=== PATIENT | female | born 1970 | race Caucasian/White ===

== ENCOUNTER 2016-09-30 11:31 | Emergency (ER) | payer BC, OTHER ==
[2016-09-30] MEDS ORDERED: KETOROLAC TROMETHAMINE 30 MG/ML VIAL IV ONE (12:00)
[2016-09-30] MEDS ORDERED: NORMAL SALINE 1,000 ML IV ONE (12:00)
[2016-09-30] MEDS ORDERED: ACETAMINOPHEN 500 MG TABLET PO ONE (12:01)
--- NOTE | 2016-09-30 12:16 | ERNOTE ---
Headache ER HPI - Narrative Date of Service: 09/30/16 - General Presenting Symptoms: facial pain, fever Time Seen by Provider: 09/30/16 11:47 Source: patient Exam Limitations: no limitations - Immun/Allergies/Home Medications Immunizations: IMMUNIZATION HX Immunizations Up to Date Yes History of Influenza Vaccine Yes Hx Pneumococcal Vaccination No Allergies/Adverse Reactions: Allergies No Known Allergies Allergy (Verified 09/30/16 11:49) Home Medications: HOME MEDICATIONS Multivitamins [Multivitamin Andressa] 1 cap PO DAILY 03/05/15 [Last Taken Unknown] Azithromycin [Zithromax] 500 mg PO NOW #6 tab 09/30/16 [Last Taken Unknown] Cefdinir [Omnicef] 300 mg PO Q12H #10 cap 09/30/16 [Last Taken Unknown] Fluconazole [Diflucan] 150 mg PO DAILY #2 tablet 09/30/16 [Last Taken Unknown] - History of Present Illness Narrative: 45-year-old female presenting to the emergency room for complaints of headache and fever for the last 2 weeks. States she's also had body aches. Patient has been seen in the outpatient clinic and has been tested for strep and mono and influenza which were all negative per Gertrudis in the walk-in clinic. Date (Duration): 09/30/16 Timing of Headache: intermittent Context Headache: Present: new onset Quality: Present: pressure Severity Maximum: Present: mild Severity-Currently: Present: mild Headache frequency: Present: no recent headache Modifying Factors - (Improves): Reports: rest Associated Symptoms: Reports: fever/chills, sweating. Denies: nausea, vomiting , nasal congestion, facial pain, numbness/tingling, vision changes, confusion, light-headedness, dizziness, loss of consciousness, seizures, neck pain/ stiffness, speech problems Prior Treament: Reports: recently seen - in out patient clinic Review of Systems - Review of Systems Constitutional: Present: See HPI, recent illness, fever EYE: Present: no symptoms reported ENT: Present: See HPI Respiratory: Present: no symptoms reported Cardiology: Present: no symptoms reported Gastrointestinal/Abdominal: Present: no symptoms reported Genitourinary: Present: no symptoms reported Musculoskeletal: Present: no symptoms reported. Absent: neck pain Skin: Present: no symptoms reported. Absent: rash Neurological: Present: no symptoms reported Endocrine: Present: no symptoms reported Hematologic/Lymphatic: Present: no symptoms reported Psych: Present: no symptoms reported - Patient's Past Medical History Patient History - Medical: Obesity, Other Patient History - Cardiac/Respiratory: Other Patient History - Cancer: No Hx of Cancer Patient History - Surgical Procedures: D & C, Hysterectomy, T & A, Other Patient History - Other: None - Social History Living Situations: alone Abuse History: No History of abuse Psych History: No pertinent hx Smoking Status: Never smoker Have you smoked in the past 12 months: No Alcohol Use: none Drug Use: none - Immunizations Immunizations Up to Date: Yes Hx Pneumococcal Vaccination: No History of Influenza Vaccine: Yes Physical Exam - Physical Exam General Appearance: Present: wd/wn, alert, no apparent distress Eye Exam: Normal inspection: bilateral Ears, Nose, Throat: Present: sinus pain/drainage, normal pharynx. Absent: nasal congestion, pharyngeal swelling Neck: Present: normal inspection Respiratory: Present: no respiratory distress Cardiovascular/Chest: Present: regular rate, rhythm Gastrointestinal/Abdominal: Present: normal bowel sounds Back Exam: Present: normal inspection Extremity Exam: Present: normal inspection Neurological Exam: Present: alert, oriented, normal mood/affect Skin Exam: Present: normal color Lymphatic Exam: Present: no adenopathy ED Progress - Results and Orders Patient's Lab Results:: I have reviewed the patient's lab results. Results and Orders: lab results reviewed - Vital Signs Patient's Vital Signs:: I have reviewed the patient's vital signs. Vital Signs: Vital Signs 09/30/16 11:46 Temperature 39 C H Pulse Rate 125 H Respiratory 14 Rate Blood Pressure 156/87 O2 Sat by Pulse 96 Oximetry - EKG EKG read: Reviewed by me EKG Comments: interperated by Dr Galeaon - X-Ray X-Ray #1 X-Ray: sinus Interpretation: Reviewed by me X-ray Comments: Impression: Paranasal sinuses appear patent. Suggestion of slight expansion of the sella turcica. If indicated, MRI of the sella turcica could be considered to further evaluate. Electronically signed by Phil Sosa D.O.. X-Ray #2 X-Ray: chest Interpretation: Reviewed by me X-ray Comments: Findings: The lungs are symmetrically inflated. There is a subtle left parahilar opacity. No pneumothorax or pleural effusion. The mediastinum, cardiac silhouette and pulmonary vascularity are within normal limits. The osseous structures are remarkable for degenerative changes. No acute osseous findings. IMPRESSION: Subtle left parahilar opacity concerning for pneumonia. Recommend follow-up to resolution as other processes are not excluded. Electronically signed by Phil Sosa D.O.. - CT/Ultrasound CT/Ultrasound Narrative: chest Impression: 1. No evidence for pulmonary embolus. 2. Left lower lung consolidation, compatible with pneumonia. Recommend follow-up to resolution as other etiologies are not excluded. 3. Left hilar lymphadenopathy and mediastinal lymphadenopathy is likely reactive. Follow-up CT in 3 months could be considered to assess for resolution. 4. Cholelithiasis. 5. Right thyroid nodule; recommend routine outpatient thyroid ultrasound to further evaluate. 6. Additional findings and comments are as above. Electronically signed by Phil Sosa D.O.. - Progress/Reassessment Chief Complaint: Headache Progress:: Improved Departure Clinical Impression: Pneumonia Qualifiers: Pneumonia type: due to unspecified organism Laterality: left Lung location: lower lobe of lung Qualified Code(s): J18.1 - Lobar pneumonia, unspecified organism - Departure Disposition: Home Follow Up Needed Condition: Good Instructions: Community-Acquired Pneumonia, Adult, [id number] Additional Instructions: Continue all previous home medications. Continue all [id number] pain and fever medications. Take antibiotics as directed. Follow up with her primary care physician on Sunday regarding CAT scan results. Return to the emergency room if symptoms persists or there not able to be controlled with medication. return to the emergency room if you have any other signs and symptoms of infection. Referrals: Frank Hernandez DO [Primary Care Provider] - Prescriptions: Azithromycin [Zithromax] 500 mg PO NOW #6 tab Cefdinir [Omnicef] 300 mg PO Q12H #10 cap Fluconazole [Diflucan] 150 mg PO DAILY #2 tablet
[2016-09-30] MEDS ORDERED: KETOROLAC TROMETHAMINE 30 MG/ML VIAL ONE (12:37)
--- OUTSIDE RECORDS SUMMARY | 2016-09-30 12:43 | XMS REPORT | Continuity of Care Document ---
:1970 Author Organization [facility] ([facility]) Address [address] [place] [address] Phone [phone] Care Team Providers Name Role Phone Frank Hernandez Primary Care Provider [phone] Source Comments This disclosure is being made pursuant to the Care Everywhere program, applicable federal and state laws, and may not contain all informaitonavailable regarding this patient.[facility] ([facility]) Active Allergies and Adverse Reactions No Known Allergies Current Medications Prescription Sig. Disp. Refills Start Date End Date Status oxyCODONE-acetamino Take 1 tablet by 60 tablet 0 06/21/2015 Active phen 5-325 mg per mouth every 4 hours tablet as needed for pain. Do Not exceed 4000 mg of acetaminophen per 24 hours. docusate 100 mg Take 1 capsule (100 60 capsule 0 06/21/2015 Active capsule mg total) by mouth 2 times daily as needed ibuprofen 600 mg Take 1 tablet (600 45 tablet 0 06/21/2015 Active tablet mg total) by mouth every 6 hours as needed multivitamin tablet Take 1 tablet by Active mouth daily. 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 SPECIALIST Pulse 75 08/09/2015 10:45 AM CL[employer]ICAL TRANSFORMATION SPECIALIST Temperature 36.9 C (98.4 F) 08/09/2015 10:45 AM CLINICAL TRANSFORMATION SPECIALIST Respiratory Rate 16 06/22/2015 8:30 AM CLINICAL TRANSFORMATION SPECIALIST Height 1.727 m (5' 8") 06/21/2015 2:00 PM CL[employer]ICAL TRANSFORMATION SPECIALIST Weight 134.4 kg (296 lb 4.8 oz) 08/09/2015 10:45 AM CLINICAL TRANSFORMATION SPECIALIST Body Mass Index 45.06 08/09/2015 10:45 AM CLINICAL TRANSFORMATION SPECIALIST Oxygen Saturation 94% 06/22/2015 8:00 AM CLINICAL TRANSFORMATION SPECIALIST Plan of Care Health Maintenance Due Date Last Done Comments Hepatitis B Vaccine (1 of 3 - Primary Series) 1970 Tdap Vaccine 1981 Lipid Disorder Screening 1988 MMR Vaccine 1988 Td Vaccine 1988 Cervical Cancer Screening 2000 Mammogram 2010 Influenza Vaccine: Seasonal (#1) 01/24/2016 Results from Last 3 Months Not on file
[2016-09-30 12:45] LABS: Hemoglobin 13.9 gm/dL (12.5-16.0); Mean Cell Volume 87.8 fl (78-100); Mean Corpuscular Hemoglobin 29.8 pg (27-31); Mean Corpuscular Hgb Conc 33.9 g/dl (32-36); Mean Platelet Volume 9.9 fl (6.0-9.5); Neutrophil # 6.8 K/mm3 (1.3-6.0); Platelet Count 211 K/mm3 (150-450); Red Blood Count 4.67 M/mm3 (4.2-5.4); Red Cell Distribution Width 12.4 % (11.5-14.0); White Blood Count 8.1 K/mm3 (4.0-10.5)
[2016-09-30 12:56] LABS: Albumin * 4.1 gm/dl (3.4-5.0); BUN/Creatinine Ratio 12.2 (9.0-21.6); Bilirubin, Total 0.8 mg/dL (0.0-1.1); Calcium * 9.4 mg/dL (7.9-10.9); Total Protein 8.2 gm/dL (6.2-8.2)
[2016-09-30 13:20] LABS: Troponin I Less than 0.017 ng/ml (0.00-0.10)
[2016-09-30 13:25] LABS: T4 Free * 1.02 ng/dL (0.76-1.46); TSH * 0.272 uIU/mL (0.358-3.74)
[2016-09-30 13:33] LABS: CRP 18.3 mg/dL (0.0-0.9)
[2016-09-30] MEDS ORDERED: AZITHROMYCIN 250 MG TABLET PO ONE (15:25)
[2016-09-30] MEDS ORDERED: AZITHROMYCIN 250 MG TABLET ONE (16:25)
[2016-09-30 16:35] VITALS: BP 166/99
== END 2016-09-30 17:31 | disposition home or self-care (01) ==
LOC: ER 11:31
DX: J18.1 Lobar pneumonia, unspecified organism (principal)

== ENCOUNTER 2017-02-26 10:54 | Emergency (ER) | payer BC, OTHER ==
--- NOTE | 2017-02-26 11:52 | ERNOTE ---
Medical Problem HPI - General Chief Complaint: Fever Time Seen by Provider: 02/26/17 11:30 Source: patient Exam Limitations: no limitations - Immun/Allergies/Home Medications Immunizations: IMMUNIZATION HX Immunizations Up to Date Yes History of Influenza Vaccine Yes Hx Pneumococcal Vaccination No Allergies/Adverse Reactions: Allergies No Known Allergies Allergy (Verified 02/26/17 11:27) Home Medications: HOME MEDICATIONS Multivitamins [Multivitamin Andressa] 1 cap PO DAILY 03/05/15 [Last Taken Unknown] Azithromycin [Zithromax] 250 mg PO DAILY #6 tablet 02/26/17 [Last Taken Unknown] Cefuroxime Axetil [Ceftin] 500 mg PO BID #14 tablet 02/26/17 [Last Taken Unknown ] - History of Present History Narrative: Patient presents with spiking fevers at home that she has been able to control with both Tylenol and Advil however when she had the same thing last year it was walking pneumonia. Denies any abdominal pain she has no burning on urination does not have a cough nor she short of breath. Timing: intermittent Severity: moderate Review of Systems - Review of Systems Constitutional: Present: See HPI EYE: Present: no symptoms reported ENT: Present: no symptoms reported Respiratory: Present: no symptoms reported Cardiology: Present: no symptoms reported Gastrointestinal/Abdominal: Present: no symptoms reported Genitourinary: Present: no symptoms reported Musculoskeletal: Present: no symptoms reported Skin: Present: no symptoms reported Neurological: Present: no symptoms reported Endocrine: Present: no symptoms reported Hematologic/Lymphatic: Present: no symptoms reported Psych: Present: no symptoms reported - Patient's Past Medical History Patient History - Medical: Obesity, Other - pneumonia Patient History - Cardiac/Respiratory: Other Patient History - Cancer: No Hx of Cancer Patient History - Surgical Procedures: D & C, Hysterectomy, T & A, Other Patient History - Other: None LMP (females 10-50): Menopausal - Social History Living Situations: home Abuse History: No History of abuse Psych History: No pertinent hx Smoking Status: Never smoker Alcohol Use: occasionally Drug Use: none - Immunizations Immunizations Up to Date: Yes Hx Pneumococcal Vaccination: No History of Influenza Vaccine: Yes Physical Exam - Physical Exam General Appearance: Present: wd/wn, alert, no apparent distress Eye Exam: Normal inspection: bilateral, PERRL: bilateral Ears, Nose, Throat: Present: normal ENT inspection, H, normal pharynx Neck: Present: normal inspection, nontender Respiratory: Present: no respiratory distress, normal breath sounds, no accessory muscle use, chest nontender, lungs clear Cardiovascular/Chest: Present: regular rate, rhythm, no murmur, normal peripheral pulses Gastrointestinal/Abdominal: Present: normal bowel sounds, nontender, nondistended, soft, no organomegaly Rectal Exam: Present: deferred Back Exam: Present: normal inspection, normal range of motion Extremity Exam: Present: normal inspection, non-tender, no edema, normal range of motion Neurological Exam: Present: alert, oriented, normal mood/affect Skin Exam: Present: normal color, warm/dry Lymphatic Exam: Present: no adenopathy ED Progress - Results and Orders Patient's Lab Results:: I have reviewed the patient's lab results. - Vital Signs Patient's Vital Signs:: I have reviewed the patient's vital signs. Vital Signs: Vital Signs 02/26/17 11:23 Temperature 35.8 C L Pulse Rate 86 Respiratory 16 Rate Blood Pressure 159/92 O2 Sat by Pulse 96 Oximetry - X-Ray X-Ray #1 X-Ray: chest Interpretation: Reviewed by me - Progress/Reassessment Chief Complaint: Fever Plan - Plan Plan: Patient had a similar episode this spring and after she was treated for what appeared to be a component of walking pneumonia she improved. His have a successful (we'll try a similar regimen and she agrees to follow up with her family physician in a week to 10 days. Departure - Departure Clinical Impression: URI (upper respiratory infection) Qualifiers: URI type: unspecified URI Qualified Code(s): J06.9 - Acute upper respiratory infection, unspecified Disposition: Home self-care Instructions: Upper Respiratory Infection, Adult, [id number] Referrals: Frank Hernandez DO [Primary Care Provider] - Prescriptions: Azithromycin [Zithromax] 250 mg PO DAILY #6 tablet Cefuroxime Axetil [Ceftin] 500 mg PO BID #14 tablet
[2017-02-26 12:02] LABS: Hematocrit 40.9 % (37.0-47.0); Hemoglobin 13.9 gm/dL (12.5-16.0); Mean Cell Volume 87.2 fl (78-100); Mean Corpuscular Hemoglobin 29.6 pg (27-31); Mean Platelet Volume 10.8 fl (6.0-9.5); Neutrophil # 5.2 K/mm3 (1.3-6.0); Neutrophil % 65.4 % (42-75.0); Platelet Count 193 K/mm3 (150-450); Red Blood Count 4.69 M/mm3 (4.2-5.4); White Blood Count 7.9 K/mm3 (4.0-10.5)
[2017-02-26 12:14] LABS: Anion Gap 18.1 mmol/L (6.8-13.8); BUN/Creatinine Ratio 15.7 (9.0-21.6); Bilirubin, Total 0.7 mg/dL (0.0-1.1); Ca. Corrected For Albumin 8.4 mg/dL (8.4-10.2); Calcium * 8.7 mg/dL (7.9-10.9); Carbon Dioxide 22.9 mmol/L (24-32.6); Total Protein 7.8 gm/dL (6.2-8.2)
[2017-02-26 13:16] VITALS: BP 150/84
== END 2017-02-26 12:20 | disposition home or self-care (01) ==
LOC: ER 10:54
DX: J06.9 Acute upper respiratory infection, unspecified (principal)